=== PATIENT | female | born 1980 | race Caucasian/White ===

== ENCOUNTER 2016-08-05 13:35 | Outpatient (CLI) ==
[2015-10-20 20:57] VITALS: BMI 29.0
[2016-08-05 16:11] LABS: FLU INTERNAL QC INTERNAL QC VALID; RAPID FLU A NEGATIVE (NEGATIVE); RAPID FLU B NEGATIVE (NEGATIVE)
== END 2016-08-05 13:36 | disposition home or self-care (01) ==
LOC: LAB 13:35
PROVIDERS: ATTEND Nurse Practitioner Family
DX: J02.9 Acute pharyngitis, unspecified (principal)
CPT/HCPCS: 87651; 87804; 87880

== ENCOUNTER 2016-08-06 17:02 | Emergency (ER) ==
[2016-08-06 17:07] VITALS: BP 173/104; TEMP 97.8; BMI 28.5
[2016-08-06] MEDS: IMITREX SUBCUT STA (18:30)
[2016-08-06] MEDS: ZOFRAN 4 MG/2 ML IM STA (18:32)
[2016-08-06] MEDS: BICILLIN L-A IM STA (18:34)
--- NOTE | 2016-08-06 19:32 | ED.PDOC ---
General ED Provider: Dr. JOHN PENNY Chief Complaint: Nausea/Vomiting Stated Complaint: patient recently had a sore throat for which she was put on Augmentin took a dose then woke up vomiting. Also complaints of chills and cough. Time Seen by Physician: 19:28 Mode of Arrival: Walk-In Information Source: Patient Primary Care Provider: JESSICA DE LA ROSA Seen Within Last 72 Hours for Same Complaint By: ED (diagnosed with Strep throat. ) Nursing and Triage Documentation Reviewed and Agree: Yes GI Complaint Exam - Vomiting/Diarrhea Complaint/Exam Onset/Duration: 1 day Symptoms Are: Still present Episodes of Vomiting over last 24 Hours: 1 Episodes of Diarrhea Over Last 24 Hours: 0 Character of Vomiting: Reports: Non-bilious Character of Diarrhea: Reports: Watery Aggravating: Reports: Movement Alleviating: Reports: Clear liquids Associated Signs and Symptoms: Reports: Cramping. Denies: Dizziness, Light- headedness, Melena, Hematemesis, Fever, Abdominal pain Use of Oral Contraceptives: No Use of Depoprovera: No Compliant With Contraceptive Use: No Non-GI Risk Factors: Reports: None Surgical Obstruction Risk Factors: Reports: None Related Surgical History: Reports: None Abdominal Findings: Present: None Differential Diagnoses: Gastritis, Other (antibiotics effect. ) Review of Systems - Review Of Systems Constitutional: Reports: Chills, Fever Ears, Nose, Mouth, Throat: Reports: Throat pain Respiratory: Reports: Cough GI: Reports: Nausea, Vomiting. Denies: Abdominal pain : Reports: No symptoms Musculoskeletal: Reports: No symptoms All Other Systems: Reviewed and Negative Past Medical History - Past Medical History Endocrine: Reports: None Cardiovascular: Reports: Hypertension Respiratory: Reports: None Hematological: Reports: None Gastrointestinal: Reports: None Genitourinary: Reports: None Neuro/Psych: Reports: Depression Musculoskeletal: Reports: None Cancer: Reports: None Last Menstrual Period: LAST MONTH - Surgical History General Surgical History: Reports: Unknown - Family History Family History: Reports: Unknown - Social History Smoking Status: Current every day smoker Hx Substance Use: No Alcohol Screening: None Physical Exam - Physical Exam Appearance: Ill-appearing Ill-appearing: Mild Pain Distress: Moderate ENT: Erythema Neck: Supple Respiratory: Airway patent, Breath sounds clear, Breath sounds equal, Respirations nonlabored Cardiovascular: Pulses normal, No rub, No murmur, Tachycardia GI/: Soft, Nontender Musculoskeletal: Normal strength, ROM intact, No edema, No calf tenderness Skin: Warm, Dry, Normal color Neurological: Sensation intact Psychiatric: Anxious Critical Care Note - Critical Care Note Total Time (mins): 0 Course - Course Orders, Labs, Meds: Orders Category Date Time Status Ondansetron HCl/Pf [Zofran 4 mg/2 ml] MEDS 08/06/16 18:18 Discontinued 4 mg IM ONCE STA Penicillin G Benzathine [Bicillin l-A] MEDS 08/06/16 18:20 Discontinued 1,200,000 unit IM ONCE STA Sumatriptan Succinate [Imitrex] MEDS 08/06/16 18:18 Discontinued 6 mg SUBCUT ONCE STA Medications Discontinued Medications Generic Name Dose Route Start Last Admin Trade Name Freq PRN Reason Stop Dose Admin Ondansetron HCl 4 mg 08/06/16 18:18 08/06/16 18:32 Zofran 4 Mg/2 Ml IM 08/06/16 18:19 4 mg ONCE STA Administration Penicillin G Benzathine 1,200,000 unit 08/06/16 18:20 08/06/16 18:34 Bicillin L-A IM 08/06/16 18:21 1,200,000 unit ONCE STA Administration Sumatriptan Succinate 6 mg 08/06/16 18:18 08/06/16 18:30 Imitrex SUBCUT 08/06/16 18:19 6 mg ONCE STA Administration Vital Signs: Temp Pulse Resp BP Pulse Ox 08/06/16 17:03 97.8 F 112 H 20 173/104 H 98 Departure - Departure Time of Disposition: 19:28 Disposition: HOME SELF-CARE Discharge Problem: Atypical migraine, Strep pharyngitis Instructions: Pharyngitis (ED), Gastritis (ED) Condition: Fair Pt referred to PMD for follow-up: Yes Additional Instructions: Take zofran as needed for Nausea or vomiting Stop taking Augmenting since you have been treated with a one time Penicillin shot Prescriptions: Ondansetron HCl [Zofran Tab] 4 mg PO Q8H PRN #14 tablet PRN Reason: Nausea / Vomiting Allergies/Adverse Reactions: Allergies codeine Allergy (Mild, Verified 08/06/16 17:07) Nausea Home Medications: Ambulatory Orders Ondansetron HCl [Zofran Tab] 4 mg PO Q8H PRN #14 tablet 08/06/16 Disposition Discussed With: Patient, Family
== END 2016-08-06 19:45 | disposition home or self-care (01) ==
LOC: ED 17:02
DX: J02.0 Streptococcal pharyngitis (principal); G43.909 Migraine, unspecified, not intractable, without status migrainosus; K29.70 Gastritis, unspecified, without bleeding; I10 Essential (primary) hypertension; F17.210 Nicotine dependence, cigarettes, uncomplicated
CPT/HCPCS: 96372; 99282

== ENCOUNTER 2016-09-13 11:16 | Emergency (ER) ==
[2016-09-13 11:17] VITALS: BMI 28.5
[2016-09-13 11:27] VITALS: BP 136/89; TEMP 97.2
--- NOTE | 2016-09-13 11:45 | ED.PDOC ---
General ED Provider: Dr. MANAS BURCIAGA JR Chief Complaint: Cough Stated Complaint: fever, nonproductive cough, chills, headache. [ End ]3 days 97.2 75 18 96% 136/89 4/10 Time Seen by Physician: 11:45 Mode of Arrival: Walk-In Information Source: Patient Exam Limitations: No limitations Primary Care Provider[facility] Nursing and Triage Documentation Reviewed and Agree: No Review of Systems - Review Of Systems Constitutional: Reports: No symptoms Eyes: Reports: No symptoms Ears, Nose, Mouth, Throat: Reports: No symptoms Respiratory: Reports: Cough Cardiac: Reports: No symptoms GI: Reports: No symptoms : Reports: No symptoms Musculoskeletal: Reports: Muscle pain Skin: Reports: No symptoms Neurological: Reports: No symptoms Endocrine: Reports: No symptoms Hematologic/Lymphatic: Reports: No symptoms All Other Systems: Other Past Medical History - Past Medical History Endocrine: Reports: None Cardiovascular: Reports: Hypertension Respiratory: Reports: None Hematological: Reports: None Gastrointestinal: Reports: None Genitourinary: Reports: None Neuro/Psych: Reports: Depression Musculoskeletal: Reports: None Cancer: Reports: None Last Menstrual Period: 1 week ago - Surgical History General Surgical History: Reports: (x1), Unknown - Family History Family History: Reports: Unknown - Social History Smoking Status: Current every day smoker, Light tobacco smoker Hx Substance Use: No Alcohol Screening: None Physical Exam - Physical Exam Appearance: Well-appearing, No pain distress, Well-nourished Pain Distress: Mild Eyes: ZENA, EOMI, Conjunctiva clear ENT: Ears normal, Nose normal, Oropharynx normal Neck: Supple Respiratory: Airway patent, Breath sounds equal, Respirations nonlabored, Rhonchi Cardiovascular: RRR, Pulses normal, No rub, No murmur GI/: Soft, Nontender, No masses, Bowel sounds normal, No Organomegaly Musculoskeletal: Normal strength, ROM intact, No edema, No calf tenderness Skin: Warm, Dry, Normal color Neurological: Sensation intact, Motor intact, Reflexes intact, Cranial nerves intact, Alert, Oriented Psychiatric: Affect appropriate, Mood appropriate Critical Care Note - Critical Care Note Total Time (mins): 0 Course - Course Orders, Labs, Meds: Lab Review 09/13/16 11:50 Influenza A (Rapid) Negative Influenza B (Rapid) Negative Orders Category Date Time Status MOLECULAR GROUP A STREP Stat LAB 09/13/16 11:50 Results RAPID FLU A/B Stat LAB 09/13/16 11:50 Completed STREP SCREEN Stat LAB 09/13/16 11:50 Results CHEST, 2 VIEWS PA & LAT Stat RADS 09/13/16 11:43 Completed Vital Signs: Temp Pulse Resp BP Pulse Ox 09/13/16 11:22 97.2 F L 75 18 136/89 96 Departure - Departure Time of Disposition: 12:52 Disposition: HOME SELF-CARE Discharge Problem: Upper respiratory infection Instructions: Upper Respiratory Infection (ED) Condition: Good Pt referred to PMD for follow-up: Yes Additional Instructions: recommend stop smoking robitussin DM or any DM cough medication four times a day as needed recommend flu shot when improved Prescriptions: Guaifenesin/Dextromethorphan [Guaifenesin Dm Syrup] 10 ml PO QID PRN #120 ml PRN Reason: Cough Allergies/Adverse Reactions: Allergies codeine Allergy (Mild, Verified 09/13/16 11:26) Nausea Home Medications: Ambulatory Orders Guaifenesin/Dextromethorphan [Guaifenesin Dm Syrup] 10 ml PO QID PRN #120 ml
--- NOTE | 2016-09-13 12:29 | DI ---
Examination: Two radiographic images of the chest. Comparison: 10/18/2011. Reason for study: Cough. FINDINGS: No pneumothorax, pleural effusion, or focal consolidation. The cardiac silhouette is not enlarged. Old granulomas disease is seen within the lung parenchyma. Impression: No acute cardiopulmonary findings.
[2016-09-13 12:46] LABS: FLU INTERNAL QC INTERNAL QC VALID; RAPID FLU A NEGATIVE (NEGATIVE); RAPID FLU B NEGATIVE (NEGATIVE)
== END 2016-09-13 12:59 | disposition home or self-care (01) ==
LOC: ED 11:16
DX: J06.9 Acute upper respiratory infection, unspecified (principal); F17.210 Nicotine dependence, cigarettes, uncomplicated
CPT/HCPCS: 87651; 87804; 87880; 99283

== ENCOUNTER 2016-11-08 16:04 | Outpatient (CLI) ==
[2016-11-08 17:27] LABS: FLU INTERNAL QC INTERNAL QC VALID; RAPID FLU A NEGATIVE (NEGATIVE); RAPID FLU B NEGATIVE (NEGATIVE)
== END 2016-11-08 16:05 | disposition home or self-care (01) ==
LOC: LAB 16:04
PROVIDERS: ATTEND Nurse Practitioner Family
DX: J02.9 Acute pharyngitis, unspecified (principal); R05 Cough; R50.9 Fever, unspecified
CPT/HCPCS: 87651; 87804; 87880

== ENCOUNTER 2017-03-03 12:09 | Outpatient (CLI) ==
[2017-03-03 13:08] LABS: BASOPHILS % (AUTO) 0.6 % (0.0-3.0); EOSINOPHILS # (AUTO) 0.1 K/ul (0.0-0.7); HEMOGLOBIN 11.7 g/dl (12.0-16.0); IMMATURE GRANULOCYTE % (AUTO) 0.2 % (0.0-5.0); LYMPHOCYTES # (AUTO) 1.4 K/uL (0.60-3.4); LYMPHOCYTES % (AUTO) 22.4 (10.0-50.0); MEAN CORPUSCULAR HEMOGLOBIN 26.8 pg (27.0-31.0); MEAN CORPUSCULAR HGB CONC 32.5 (31.8-35.4); MEAN CORPUSCULAR VOLUME 82.6 fl (81.0-99.0); MONOCYTES # (AUTO) 0.6 K/uL (0.4-2.0); MONOCYTES % (AUTO) 8.7 (0-10); NEUTROPHILS # (AUTO) 4.3 K/ul (2.0-6.9); NEUTROPHILS % (AUTO) 66.1; PLATELET COUNT 249 10^3/uL (140-440); RED BLOOD COUNT 4.36 10^6/ul (4.20-5.40); WHITE BLOOD COUNT 6.43 K/ul (4.6-10.2)
[2017-03-03 13:32] LABS: ALBUMIN 3.8 g/dL (3.4-5.0); ALBUMIN/GLOBULIN RATIO 1.09; ANION GAP 16.5; BILIRUBIN,TOTAL 0.21 mg/dL (0.00-1.20); BUN/CREATININE RATIO 6.32; CALCIUM 9.6 mg/dL (8.2-10.2); CHOL/HDL RATIO 3.6 (4.5-5.5); CREATININE 0.79 mg/dL (0.60-1.30); POTASSIUM 3.5 mmol/L (3.5-5.10); TOTAL PROTEIN 7.3 g/dL (6.4-8.2); URIC ACID 5.4 mg/dL (2.4-6.0)
== END 2017-03-03 12:10 | disposition home or self-care (01) ==
LOC: LAB 12:09
PROVIDERS: ATTEND Nurse Practitioner Family
DX: M79.671 Pain in right foot (principal); E75.6 Lipid storage disorder, unspecified; F41.9 Anxiety disorder, unspecified
CPT/HCPCS: 36415; 80053; 80061; 84550; 85025

== ENCOUNTER 2017-03-09 08:42 | Outpatient (CLI) ==
--- NOTE | 2017-03-09 10:18 | US ---
EXAM: Ultrasound abdomen limited. HISTORY: Elevated liver enzymes. COMPARISON: None available. TECHNIQUE: Abdominal, real time with image documentation: limited (eg, single organ, quadrant, fol low-up) FINDINGS: The liver demonstrates homogeneous echotexture without intrahepatic biliary dilatation. Portal venous flow is normal in direction. The gallbladder is without shadowing stones, wall thicke raul or pericholecystic fluid. Common duct measures approximately 0.3 cm. Visualized portions of t he pancreas are unremarkable. IMPRESSION: No sonographic abnormality of the liver, gallbladder or biliary system.
== END 2017-03-09 08:43 | disposition home or self-care (01) ==
LOC: RAD 08:42
PROVIDERS: ATTEND Nurse Practitioner Family
DX: R74.8 Abnormal levels of other serum enzymes (principal)
CPT/HCPCS: 36415; 82977

== ENCOUNTER 2017-07-20 16:17 | Outpatient (CLI) ==
[2017-07-20 16:23] LABS: BASOPHILS # (AUTO) 0.1 K/uL (0-0.2); BASOPHILS % (AUTO) 0.4 % (0.0-3.0); EOSINOPHILS # (AUTO) 0.1 K/ul (0.0-0.7); EOSINOPHILS % (AUTO) 0.7 % (0.0-7.0); HEMATOCRIT 35.6 % (37.0-47.0); HEMOGLOBIN 11.5 g/dl (12.0-16.0); IMMATURE GRANULOCYTE % (AUTO) 0.5 % (0.0-5.0); LYMPHOCYTES # (AUTO) 1.3 K/uL (0.60-3.4); LYMPHOCYTES % (AUTO) 8.1 (10.0-50.0); MEAN CORPUSCULAR HEMOGLOBIN 26.9 pg (27.0-31.0); MEAN CORPUSCULAR HGB CONC 32.3 (31.8-35.4); MEAN CORPUSCULAR VOLUME 83.4 fl (81.0-99.0); MONOCYTES # (AUTO) 1.1 K/uL (0.4-2.0); MONOCYTES % (AUTO) 6.9 (0-10); NEUTROPHILS # (AUTO) 13.7 K/ul (2.0-6.9); NEUTROPHILS % (AUTO) 83.4; PLATELET COUNT 313 10^3/uL (140-440); RED BLOOD COUNT 4.27 10^6/ul (4.20-5.40); WHITE BLOOD COUNT 16.38 K/ul (4.6-10.2)
[2017-07-20 17:00] LABS: ALBUMIN 3.7 g/dL (3.4-5.0); ALBUMIN/GLOBULIN RATIO 0.97; ANION GAP 14.6; BILIRUBIN,TOTAL 0.4 mg/dL (0.00-1.20); BUN/CREATININE RATIO 5.26; CALCIUM 9.2 mg/dL (8.2-10.2); CHOL/HDL RATIO 3.2 (4.5-5.5); CREATININE 0.76 mg/dL (0.60-1.30); POTASSIUM 3.6 mmol/L (3.5-5.10); TOTAL PROTEIN 7.5 g/dL (6.4-8.2)
== END 2017-07-20 16:18 | disposition home or self-care (01) ==
LOC: LAB 16:17
PROVIDERS: ATTEND Nurse Practitioner Family
DX: F41.9 Anxiety disorder, unspecified (principal)
CPT/HCPCS: 36415; 80053; 80061; 84439; 84443; 85025

== ENCOUNTER 2018-02-05 10:07 | Emergency (ER) ==
[2018-02-05 10:10] VITALS: BP 156/96; TEMP 97.3; BMI 28.8
--- NOTE | 2018-02-05 11:40 | ED.PDOC ---
General ED Provider: Dr. ATLON ROJAS Chief Complaint: Respiratory Complaint Stated Complaint: cough Time Seen by Physician: 10:10 (seen with cadence at all times ) Mode of Arrival: Walk-In Information Source: Patient Exam Limitations: No limitations Primary Care Provider: JESSICA PANNEW [facility] Nursing and Triage Documentation Reviewed and Agree: Yes Does patient meet sepsis criteria?: No If yes, has appropriate treatment been initiated?: No System Inflammatory Response Syndrome: Not Applicable Sepsis Protocol: For patient's 13 years and over: Temp is 96.8 and below OR 101 and greater Pulse >90 BPM Resp >20/minute Acutely Altered Mental Status Are patient's symptoms suggestive of a new infection, such as: -Pneumonia -Skin, Soft Tissue -Endocarditis -UTI -Bone, Joint Infection -Implantable Device -Acute Abdominal Infection -Wound Infection -Meningitis -Blood Stream Catheter Infection -Unknown Respiratory Complaint Exam - Respiratory Complaint/Exam Onset/Duration: 2 days Symptoms Are: Still present Timing: Intermittent Initial Severity: Moderate Current Severity: Mild Location: Nose, Chest Character: Reports: Non-productive cough, Dry cough Alleviating: Reports: Spontaneous resolution Associated Signs and Symptoms: Reports: URI, Nasal congestion. Denies: Rapid breathing, Dyspnea, Fever, Chills, Chest pain, Pleuritic chest pain, Wheezing, Hemoptysis, Dizziness, Calf pain, Calf swelling, Edema, Hoarseness, Sinus discomfort, Vomiting, Sore throat, Weight loss, Decreased oral intake, Increased thirst, Increased appetite, Increased urination Related History: Reports: Similar episode History of Healthcare-Acquired Pneumonia: No Related Surgical History: Reports: None Pulmonary Embolism Risk Factors: None Cardiac Risk Factors: Reports: Smoking, Hypertension Tuberculosis Risk Factors: Reports: Smoking Status Asthmaticus Risk Factors: Reports: None Home Oxygen Use: No Recent Stress Test: No Recent Echo/LV Function: No Current Antibiotic Use: No Current Asthma Medication Use: No Respiratory Distress: None Inadequate Respiratory Effort: No Dysphagia Present: No Stridor Present: No JVD Present: No Accessory Muscle Use: No Retractions: Not Present Diminished Breath Sounds: No Sinus Tenderness: None Grunting Respirations: No Kussmaul Respirations: No Differential Diagnoses: Pneumonia, Bronchitis Review of Systems - Review Of Systems Constitutional: Reports: No symptoms Eyes: Reports: No symptoms Ears, Nose, Mouth, Throat: Reports: No symptoms Respiratory: Reports: Cough Cardiac: Reports: No symptoms GI: Reports: No symptoms : Reports: No symptoms Musculoskeletal: Reports: No symptoms Skin: Reports: No symptoms Neurological: Reports: No symptoms Endocrine: Reports: No symptoms Hematologic/Lymphatic: Reports: No symptoms All Other Systems: Reviewed and Negative Past Medical History - Past Medical History Endocrine: Reports: None Cardiovascular: Reports: Hypertension Respiratory: Reports: None Hematological: Reports: None Gastrointestinal: Reports: None Genitourinary: Reports: None Neuro/Psych: Reports: Depression Musculoskeletal: Reports: None Cancer: Reports: None Last Menstrual Period: 2 days ago - Surgical History General Surgical History: Reports: (x1), Unknown - Family History Family History: Reports: Unknown - Social History Smoking Status: Current every day smoker, Light tobacco smoker Hx Substance Use: No Alcohol Screening: None Physical Exam - Physical Exam Appearance: Well-appearing, No pain distress, Well-nourished Eyes: ZENA, EOMI, Conjunctiva clear ENT: Ears normal, Nose normal, Oropharynx normal Respiratory: Rhonchi Cardiovascular: RRR, Pulses normal, No rub, No murmur GI/: Soft, Nontender, No masses, Bowel sounds normal, No Organomegaly Musculoskeletal: Normal strength, ROM intact, No edema, No calf tenderness Skin: Warm, Dry, Normal color Neurological: Sensation intact, Motor intact, Reflexes intact, Cranial nerves intact, Alert, Oriented Psychiatric: Affect appropriate, Mood appropriate Critical Care Note - Critical Care Note Total Time (mins): 0 Course - Course Hematology/Chemistry: 02/05/18 10:30 02/05/18 10:30 Orders, Labs, Meds: Lab Review 02/05/18 02/05/18 02/05/18 10:30 10:30 10:35 WBC 11.46 H RBC 4.47 Hgb 11.2 L Hct 35.3 L MCV 79.0 L MCH 25.1 L MCHC 31.7 L RDW Coeff of Dennis 15.0 H Plt Count 211 Immature Gran % (Auto) 0.3 Neut % (Auto) 79.7 Lymph % (Auto) 10.5 [place] % (Auto) 8.9 Eos % (Auto) 0.4 Baso % (Auto) 0.2 Immature Gran # (Auto) 0.0 Neut # (Auto) 9.1 H Lymph # (Auto) 1.2 [place] # (Auto) 1.0 Eos # (Auto) 0.1 Baso # (Auto) 0.0 Sodium 138 Potassium 3.3 L Chloride 103 Carbon Dioxide 26 Anion Gap 12.3 BUN 6 L Creatinine 0.74 Estimated GFR (MDRD) 87.00 BUN/Creatinine Ratio 8.10 Glucose 96 Calcium 9.0 Total Bilirubin 0.4 AST 13 L ALT 8 L Alkaline Phosphatase 140 H Total Protein 7.1 Albumin 3.5 Globulin 3.6 Albumin/Globulin Ratio 0.97 Urine Test Negative Orders Category Date Time Status CBC W/ AUTO DIFF Stat LAB 02/05/18 10:30 Completed COMPREHENSIVE METABOLIC PANEL Stat LAB 02/05/18 10:30 Completed URINE Stat LAB 02/05/18 10:35 Completed CHEST, 2 VIEWS PA & LAT Stat RADS 02/05/18 10:19 Ordered Vital Signs: Temp Pulse Resp BP Pulse Ox 02/05/18 10:08 97.3 F L 96 H 18 156/96 H 99 Departure - Departure Time of Disposition: 12:00 Disposition: HOME SELF-CARE Discharge Problem: Bronchitis Instructions: Acute Bronchitis (ED), How to Stop Smoking (ED) Condition: Good Pt referred to PMD for follow-up: Yes IPMP verified?: No Additional Instructions: Please call your Family Physician as soon as possible to schedule a follow-up appointment. Allergies/Adverse Reactions: Allergies codeine Allergy (Mild, Verified 02/05/18 10:11) Nausea Home Medications: Ambulatory Orders Amoxicillin 500 mg PO Q8HR #21 tablet 02/05/18 Disposition Discussed With: Patient
--- NOTE | 2018-02-05 11:46 | DI ---
EXAM: Chest two view, frontal and lateral views. HISTORY: Cough. COMPARISON: 09/13/2016, 10/18/2011. FINDINGS: The heart size is normal. There is no pulmonary vascular congestion. The lungs are clear save for calcified granulomatous changes. No pleural effusion or pneumothorax is seen. No acute os seous abnormality identified. Since the prior study, there has been no significant interval change. IMPRESSION: No acute cardiopulmonary process.
== END 2018-02-05 11:53 | disposition home or self-care (01) ==
LOC: ED 10:07
DX: J40 Bronchitis, not specified as acute or chronic (principal); F17.210 Nicotine dependence, cigarettes, uncomplicated; I10 Essential (primary) hypertension
CPT/HCPCS: 36415; 80053; 81025; 85025; 99283

== ENCOUNTER 2018-12-05 15:12 | Outpatient (CLI) ==
[2018-07-07 05:38] VITALS: BMI 29.3
== END 2018-12-05 15:13 | disposition home or self-care (01) ==
LOC: RHC-LAB 15:12
PROVIDERS: ATTEND Nurse Practitioner Family
DX: I10 Essential (primary) hypertension (principal); F41.9 Anxiety disorder, unspecified
CPT/HCPCS: 36415; 80053; 80061; 84443; 85025